=== PATIENT | male | born 1955 ===

== ENCOUNTER 2018-12-19 09:04 | Inpatient (IN) | payer MEDICARE, MEDICAID ==
[2018-12-19 09:56] VITALS: BMI 34.9
[2018-12-19 10:10] LABS: INR 1.1; PROTHROMBIN TIME 11.7 SECONDS (9.7-12.2)
[2018-12-19] MEDS ORDERED: Iodixanol 320 MG/ML 100 ML BOTTLE IV ONE (12:01)
[2018-12-19] MEDS ORDERED: Lidocaine 2% MPF (5 ml) Inj ONE (12:01)
[2018-12-19] MEDS ORDERED: Midazolam 2 MG/2 ML VIAL ONE (12:16)
[2018-12-19] MEDS ORDERED: Iodixanol 320 MG/ML 200 ML BOTTLE IV ONE ×2 (12:49→13:08)
[2018-12-19] MEDS ORDERED: Sodium Chloride 0.9% 1,000 ML IV SCH (14:00)
--- NOTE | 2018-12-19 17:38 | CP.PCM.CON ---
History of Present Illness - History of Present Illness History of Present Illness: PGY-[address] Collins Patient is a 63 year old male with PMHx CAD who presents as a transfer from [facility] for ICU monitoring s/p cardiac cath. Patient initially presented with pressure-like chest pain non-radiating, non-anginal. Pain resolved with nitro SL in [place] ED and patient has had no chest pain since. Patient has hx CAD with stents in the past (2002) - at which time patient was told he should have CABG but pt did not want invasive surgery so stents were placed instead. Patient went for cath today with Dr. Michele and was found to have extensive triple vessel CAD. Patient is a current smoker, and former abuser of alcohol, but does still drink wine once a month. Patient denies SOB, dizziness, n/v/d, focal weakness, vision loss, numbness, tingling. PMHx: CAD Social: Current smoker. Former heavy alcohol drinker. Does drink 1 bottle wine in one sitting once/month Surgeries: Cardiac cath 2002 Allergies: Lisinopril - rash Review of Systems - Constitutional Constitutional: absent: Chills, Fever - EENT Eyes: absent: Change in Vision, Photophobia - Cardiovascular Cardiovascular: Chest Pain (resolved), Chest Pain at Rest (resolved). absent: Chest Pain with Activity, Dyspnea, Pain Radiating to Arm/Neck/Jaw, Lightheadedness, Palpitations - Respiratory Respiratory: absent: Cough, Wheezing - Gastrointestinal Gastrointestinal: absent: Nausea, Vomiting - Genitourinary Genitourinary: absent: Flank Pain, Hematuria - Musculoskeletal Musculoskeletal: absent: Numbness, Tingling - Neurological Neurological: absent: Dizziness, Numbness, Focal Weakness, Loss of Vision - Psychiatric Psychiatric: absent: Anxiety, Depression - Hematologic/Lymphatic Hematologic: absent: Easy Bleeding, Easy Bruising Past Patient History - Past Medical History & Family History Past Medical History?: Yes - Past Social History Smoking Status: Light Smoker < 10 Cigarettes Daily - CARDIAC Hx Cardiac Disorders: Yes Hx Hypertension: Yes - PULMONARY Hx Respiratory Disorders: No - NEUROLOGICAL Hx Neurological Disorder: No - HEENT Hx HEENT Problems: Yes Other/Comment: Tinnitus - RENAL Hx Chronic Kidney Disease: No - ENDOCRINE/METABOLIC Hx Endocrine Disorders: Yes Hx Diabetes Mellitus Type 2: Yes - HEMATOLOGICAL/ONCOLOGICAL Hx Blood Disorders: No Hx AIDS: No Hx Human Immunodeficiency Virus (HIV): No - INTEGUMENTARY Hx Dermatological Problems: No - MUSCULOSKELETAL/RHEUMATOLOGICAL Hx Musculoskeletal Disorders: No Hx Falls: No - GASTROINTESTINAL Hx Gastrointestinal Disorders: No - GENITOURINARY/GYNECOLOGICAL Hx Genitourinary Disorders: No - PSYCHIATRIC Hx Psychophysiologic Disorder: No Hx Substance Use: Yes (MARIJUANA) - SURGICAL HISTORY Hx Surgeries: Yes Hx Coronary Stent: Yes (2x (2013)) - ANESTHESIA Hx Anesthesia: Yes Hx Anesthesia Reactions: No Meds Allergies/Adverse Reactions: Allergies Allergy/AdvReac Type Severity Reaction Status Date / Time lisinopril Allergy RASH Verified 12/17/18 22:15 - Medications Medications: Current Medications Sodium Chloride (Sodium Chloride 0.9%) 1,000 mls @ 75 mls/hr IV .[id number] JH Stop: 12/19/18 20:01 Metoprolol Succinate (Toprol Xl) 25 mg PO DAILY JH Pantoprazole Sodium (Protonix Ec Tab) 40 mg PO DAILY JH Physical Exam - Constitutional Appears: Non-toxic, No Acute Distress - Head Exam Head Exam: ATRAUMATIC, NORMOCEPHALIC - Eye Exam Eye Exam: EOMI - ENT Exam ENT Exam: Mucous Membranes Moist - Respiratory Exam Respiratory Exam: Clear to Auscultation Bilateral - Cardiovascular Exam Cardiovascular Exam: REGULAR RHYTHM, +S1, +S2 - GI/Abdominal Exam GI & Abdominal Exam: Normal Bowel Sounds, Soft. absent: Tenderness - Extremities Exam Extremities exam: Positive for: normal inspection. Negative for: pedal edema, tenderness - Neurological Exam Neurological exam: Alert, CN II-XII Intact, Oriented x3 - Psychiatric Exam Psychiatric exam: Normal Affect, Normal Mood - Skin Skin Exam: Dry, Intact Results - Vital Signs Recent Vital Signs: Last Vital Signs Temp 97.7 F 12/19/18 17:00 Pulse Resp BP Pulse Ox - Labs Labs: Laboratory Results - last 24 hr 12/19/18 12/19/18 09:53 13:52 PT 11.7 INR 1.1 APTT 33.0 POC Glucose (mg/dL) 196 H Assessment & Plan - Assessment and Plan (Free Text) Assessment: 63 year old male with PMHx CAD presents with acute onset chest pain, found to have triple vessel CAD on cardiac cath. Plan for transfer to [facility] tomorrow for CABG on Saturday Plan Cardio Triple Vessel CAD -S/p cath with Dr. Fischer - extensive triple vessel dz -Transfer from [facility] for ICU monitoring -Plan transfer to [facility] tomorrow for CABG on Saturday -ICU [place] monitoring Meds -ASA 81 mg -Toprol XL 25 -Lovenox 100mg SC BID -Crestor 20 mg HS Pulm -Maintain spO2 > 92% Neuro -A and O x3 Renal -Is and Os PPx -Lovenox 100 mg PO BID -Protonix 40 mg PO daily Assessmen and plan d/w Dr. Dennis Pete, PGY-1
[2018-12-19] MEDS ORDERED: Dextrose 50% SYRINGE Inj (50 ml) IV PRN (17:50)
[2018-12-19] MEDS ORDERED: Glucagon Recombinant 1 mg Inj IM PRN (17:50)
[2018-12-19] MEDS ORDERED: Enoxaparin 100 mg Syringe SC SCH ×2 (19:00→20:00)
[2018-12-19] MEDS ORDERED: (Novolin R) Insulin Human Regular 100 units/ml vial SC SCH (22:00)
[2018-12-20 01:54] VITALS: BP 126/82; PULSE 67; RESP 20; TEMP 98.1; O2SAT 98
[2018-12-20] MEDS ORDERED: Metoprolol Succinate 25 mg XL Tab PO SCH (10:00)
[2018-12-20] MEDS ORDERED: Pantoprazole 40 mg EC Tab PO SCH (10:00)
--- NOTE | 2018-12-20 12:09 | CP.PCM.HP ---
History of Present Illness - History of Present Illness History of Present Illness: History and Physical Patient was seen and examined on 12/19/18 in the ICU Bed 8 after his Cardiac Catheterization 63 year old male ( PMHx CAD, DM 2, HTN, PTSD S/P [place] [employer] [place]) who presented to [place] ER 12/18/18 for chest pain. He was then transferred to for Cardiac Catheterization performed by [employer] Receiver Dr. Michele. Patient was found to have Triple Vessel Disease. Patient was transferred to ICU and is awaiting transfer to [facility] for performance of CABG. Dr. Michele asked to admit patient to Hospitalist Service until transfer to [facility] can be arranged. Currently upon FULL ROS: NO chest pain NO palpitations NO SOB/Cough/Wheezing NO dysphagia/odynophagia NO abdominal pain NO n/v/d/c NO burning/pain with urination NO lightheadedness/dizziness NO headaches NO new changes in vision NO new changes in hearing NO edema PMHx: CAD, DM 2, HTN, PTSD S/P [place] [employer] [place] PSHx: Cardiac Stent x 2012 ALL: Lisinopril/HCTZ that gives him rash and pruritus Medications: Metoprolol 25 mg PO 1x/day, Metformin 1,000 mg PO 2x/day, ASA 81 mg PO 1x/day, Victoza 1.8 mg SC 1x/day, Lantus 30 units SC HS, Insulin Aspart 6 mg SC AC Meals, Losartn 25 mg PO 1x/day, Ecotrin 81 mg PO 1x/day Social Hx: Lives Alone, Retired , (+) Smokes 1 pack per 2 weeks, (+) Former heavy drinker and now 1 bottle of red wine once a week, (+) Occasional MJ use Family Hx: Mom of complications of [place] at age 67, Dad alive at age 89 with history of Dementia and Emphysema Advance Directive: NO Proxy: Son who lives in [place] Code Status: Full Exam: HEENT: NCA, EOMI, PERRLA, NO Pharyngeal Erythema/Exudate, NO lymphadenopathy, NO thyromegaly, Nasal Turbinates are moist/nonerythematous/nonedematous Cardio: NS1 and NS2, NO M/R/G Resp: CTA B/L, NO R/R/W GI: BSx4, Soft, NT, ND, NO guarding/rebound tenderness Ext: Pulses are strong and eqal, Capillary Refill is 2 seconds, NO edema Neuro: CN II through XII are grossly intact Assessments: 1). 3 Vessal CAD Status: Acute 2). Hx CAD with Cardiac Stent 2012 Status: Chronic 3). Hx DM2 Status: Chronic 4). Hx HTN Status: Chronic 5). Hx PTSD Status: Chronic I spoke with [employer] Re[employer] Dr. Michele and he explained that he was making arrangements to have patient transferred to [facility] for CABG. Patient was started on Crestor, Toprol XL, Ecotrin, Therapeutic Lovenox and ISS and Cozaar was held Patient was concerned about going for the CABG and I have explained the basics of the procedure to him. He is trying to have his son come from [place] before the CABG at [facility] but stated that if it needed to be done before he got here, that he understood. I provided Dr. Michele with patient's son's phone number so that he could update him. Kevin Urban D.O. Present on Admission - Present on Admission Any Indicators Present on Admission: Yes History of DVT/PE: No History of Uncontrolled Diabetes: No Urinary Catheter: No Decubitus Ulcer Present: No Past Patient History - Past Medical History & Family History Past Medical History?: Yes - Past Social History Smoking Status: Light Smoker < 10 Cigarettes Daily - CARDIAC Hx Cardiac Disorders: Yes Hx Hypertension: Yes - PULMONARY Hx Respiratory Disorders: No - NEUROLOGICAL Hx Neurological Disorder: No - HEENT Hx HEENT Problems: Yes Other/Comment: Tinnitus - RENAL Hx Chronic Kidney Disease: No - ENDOCRINE/METABOLIC Hx Endocrine Disorders: Yes Hx Diabetes Mellitus Type 2: Yes - HEMATOLOGICAL/ONCOLOGICAL Hx Blood Disorders: No Hx AIDS: No Hx Human Immunodeficiency Virus (HIV): No - INTEGUMENTARY Hx Dermatological Problems: No - MUSCULOSKELETAL/RHEUMATOLOGICAL Hx Musculoskeletal Disorders: No Hx Falls: No - GASTROINTESTINAL Hx Gastrointestinal Disorders: No - GENITOURINARY/GYNECOLOGICAL Hx Genitourinary Disorders: No - PSYCHIATRIC Hx Psychophysiologic Disorder: No Hx Substance Use: Yes (MARIJUANA) - SURGICAL HISTORY Hx Surgeries: Yes Hx Coronary Stent: Yes (2x (2012)) - ANESTHESIA Hx Anesthesia: Yes Hx Anesthesia Reactions: No Meds Allergies/Adverse Reactions: Allergies Allergy/AdvReac Type Severity Reaction Status Date / Time lisinopril Allergy RASH Verified 12/17/18 22:15 Results - Vital Signs Recent Vital Signs: Last Vital Signs Temp 98.1 F 12/20/18 00:00 Pulse 67 12/20/18 00:00 Resp 20 12/20/18 00:00 BP 126/82 12/20/18 00:00 Pulse Ox 98 12/20/18 00:00 - Labs Labs: Laboratory Results - last 24 hr 12/19/18 13:52 POC Glucose (mg/dL) 196 H
--- NOTE | 2018-12-20 19:05 | CP.PCM.DIS ---
Provider - Provider Date of Admission: 12/19/18 15:16 Attending physician: Chente Coleman DO Consults: Cardiology Dr. Michele Time Spent in preparation of Discharge (in minutes): 40 Hospital Course - Lab Results Lab Results: Most Recent Lab Values PT 11.7 SECONDS (9.7-12.2) 12/19/18 09:53 INR 1.1 12/19/18 09:53 APTT 33.0 SECONDS (21-34) 12/19/18 09:53 POC Glucose (mg/dL) 196 mg/dL (65-110) H 12/19/18 13:52 - Hospital Course Hospital Course: Discharge Summary Patient was seen and examined on 12/19/18 in the ICU Bed 8 after his Cardiac Catheterization 63 year old male ( PMHx CAD, DM 2, HTN, PTSD S/P [place] [employer] ) who presented to [place] ER 12/18/18 for chest pain. He was then transferred to for Cardiac Catheterization performed by [employer] Dr. Michele. Patient was found to have Triple Vessel Disease. Patient was transferred to ICU and is awaiting transfer to [facility] [place] performance of CABG. Dr. Michele asked to admit patient to Hospitalist Service until transfer to [facility] can be arranged. Please NOTE that this patient was transferred to [facility] on evening of 12/19/18 without myself being notified. I found out that the patient was transferred to [facility] when I arrived for work on 12/20/18. Below is my H&P performed on 12/19/18 when I was asked to admit the patient. Currently upon FULL ROS: NO chest pain NO palpitations NO SOB/Cough/Wheezing NO dysphagia/odynophagia NO abdominal pain NO n/v/d/c NO burning/pain with urination NO lightheadedness/dizziness NO headaches NO new changes in vision NO new changes in hearing NO edema PMHx: CAD, DM 2, HTN, PTSD S/P [place] [employer] [place] PSHx: Cardiac Stent x 2012 ALL: Lisinopril/HCTZ that gives him rash and pruritus Medications: Metoprolol 25 mg PO 1x/day, Metformin 1,000 mg PO 2x/day, ASA 81 mg PO 1x/day, Victoza 1.8 mg SC 1x/day, Lantus 30 units SC HS, Insulin Aspart 6 mg SC AC Meals, Losartn 25 mg PO 1x/day, Ecotrin 81 mg PO 1x/day Social Hx: Lives Alone, Retired , (+) Smokes 1 pack per 2 weeks, (+) Former heavy drinker and now 1 bottle of red wine once a week, (+) Occasional MJ use Family Hx: Mom of complications of [place] at age 67, Dad alive at age 89 with history of Dementia and Emphysema Advance Directive: NO Proxy: Son who lives in [place] Code Status: Full Exam: HEENT: NCA, EOMI, PERRLA, NO Pharyngeal Erythema/Exudate, NO lymphadenopathy, NO thyromegaly, Nasal Turbinates are moist/nonerythematous/nonedematous Cardio: NS1 and NS2, NO M/R/G Resp: CTA B/L, NO R/R/W GI: BSx4, Soft, NT, ND, NO guarding/rebound tenderness Ext: Pulses are strong and eqal, Capillary Refill is 2 seconds, NO edema Neuro: CN II through XII are grossly intact Assessments: 1). 3 Vessal CAD Status: Acute 2). Hx CAD with Cardiac Stent 2012 Status: Chronic 3). Hx DM2 Status: Chronic 4). Hx HTN Status: Chronic 5). Hx PTSD Status: Chronic I spoke with [employer] Dr. Michele and he explained that he was making arrangements to have patient transferred to [facility] for CABG. Patient was started on Crestor, Toprol XL, Ecotrin, Therapeutic Lovenox and ISS and Cozaar was held Patient was concerned about going for the CABG and I have explained the basics of the procedure to him. He is trying to have his son come from [place] before the CABG at [facility] but stated that if it needed to be done before he got here, that he understood. I provided Dr. Michele with patient's son's phone number so that he could update him. Kevin Urban D.O. Discharge Exam - Head Exam Head Exam: ATRAUMATIC, NORMOCEPHALIC Discharge Plan - Follow Up Plan Condition: GOOD Disposition: OTHER INSTITUTION
== END 2018-12-20 01:00 | disposition short-term general hospital (02) | DRG 287 ==
LOC: C.CATHLAB 09:04 → C.9I 15:16
PROVIDERS: ADMIT Hospitalist; ATTEND Hospitalist
PROC: 4A023N7 Measurement of Cardiac Sampling and Pressure, Left Heart, Percutaneous Approach (ICD-10-PCS; principal; 2018-12-19)
PROC: B2151ZZ Fluoroscopy of Left Heart using Low Osmolar Contrast (ICD-10-PCS; 2018-12-19)
PROC: B2111ZZ Fluoroscopy of Multiple Coronary Arteries using Low Osmolar Contrast (ICD-10-PCS; 2018-12-19)
DX: I25.10 Atherosclerotic heart disease of native coronary artery without angina pectoris (principal); I10 Essential (primary) hypertension; R79.89 Other specified abnormal findings of blood chemistry; E11.9 Type 2 diabetes mellitus without complications; F43.10 Post-traumatic stress disorder, unspecified; F10.10 Alcohol abuse, uncomplicated; F17.210 Nicotine dependence, cigarettes, uncomplicated; F12.90 Cannabis use, unspecified, uncomplicated; Z95.5 Presence of coronary angioplasty implant and graft; Z79.84 Long term (current) use of oral hypoglycemic drugs; Z82.5 Family history of asthma and other chronic lower respiratory diseases